=== PATIENT | female | born 1950 | race Caucasian/White ===

== ENCOUNTER 2023-04-24 12:18 | Outpatient (CLI) | payer MEDICARE | END 2023-04-24 12:19 | disposition critical access hospital (66) | LOC: EMS 12:18 | DX: F41.9 Anxiety disorder, unspecified (principal) | CPT/HCPCS: A0425; A0429 ==

== ENCOUNTER 2023-04-24 12:24 | Emergency (ER) | payer MEDICARE ==
[2023-04-24] MEDS ORDERED: LORazepam 2 MG/ML VIAL IVP STA (12:31)
[2023-04-24] MEDS ORDERED: LORazepam 2 MG/ML VIAL IM STA (12:31)
--- NOTE | 2023-04-24 12:36 | ED Physician Documentation ---
PD HPI MHE - Stated complaint Stated Complaint: ANXIETY - History obtained from History obtained from: Patient, EMS - Additional information Additional information: 72-year-old woman recently moved back from [place] where she was for 10 years. There she was maintained on clonazepam and Effexor. She stop these medications a few weeks ago of her own volition and now has severe anxiety and wanting help with that. She denies SI or HI, she says she was suicidal up 2 years ago but not since, that was after her dog . PD PAST MEDICAL HISTORY - Present Medications Home Medications: Ambulatory Orders Medication Instructions Recorded Confirmed LORazepam [Ativan] 1 mg PO TID PRN #20 tablet 04/24/23 - Allergies Allergies/Adverse Reactions: Allergies Allergy/AdvReac Type Severity Reaction Status Date / Time Penicillins Allergy Unknown Verified 04/24/23 12:37 PD ED PE NORMAL - Vitals Vital signs reviewed: Yes - General General: Alert and oriented X 3, Other (Slightly pressured speech and intermittently tearful) - HEENT HEENT: PERRL, EOMI - Neck Neck: Supple, no meningeal sign, No bony TTP - Neuro Neuro: Alert and oriented X 3, Normal speech Results - Vitals Vitals: Vital Signs - 24 hr 04/24/23 04/24/23 12:37 12:39 Temperature 36.5 C 36.5 C Heart Rate 100 100 Respiratory 20 16 Rate Blood Pressure 180/100 H 180/100 H O2 Saturation 98 98 Oxygen O2 Source Room air PD Medical Decision Making - ED course ED course: 72-year-old woman presents with severe anxiety related to medication withdrawal. After 2 mg of lorazepam IM she was feeling much better and speaking much more cogently, did not seem at all sedated. Offered social work consultation for consideration for hospitalization, but she would like to just have a refill of her medications although does not want to restart Effexor. Departure - Departure Disposition: 01 Home, Self Care Clinical Impression: Anxiety Condition: Good Record reviewed to determine appropriate education?: Yes Instructions: ED Panic Attack Prescriptions: LORazepam [Ativan] 1 mg PO TID PRN #20 tablet PRN Reason: Anxiety Comments: I sent the prescription electronically to the [facility] pharmacy at [place] [address] and [facility] in [place]. Its not more than about 200 yards from the hospital. Do not drink or drive while taking these medications and recognize they can be addictive. There is a list of PCPs attached to this form, call him for primary care follow-up and routine care. Follow-up with [facility] at [phone] to schedule psychiatric care and counseling. Forms: PCP List
[2023-04-24 12:42] VITALS: O2SAT 98
[2023-04-24 13:43] VITALS: BP 150/88
== END 2023-04-24 13:32 | disposition home or self-care (01) ==
LOC: ED 12:24
DX: F41.9 Anxiety disorder, unspecified (principal)
CPT/HCPCS: 96372; 99283; J2060

== ENCOUNTER 2023-04-26 14:32 | Outpatient (CLI) | payer MEDICARE ==
[2023-04-26 14:47] LABS: BASOPHILS # (AUTO) 0.1 10^3/uL (0.0-0.1); BASOPHILS % (AUTO) 2.4 %; EOSINOPHILS # (AUTO) 0.1 10^3/uL (0.0-0.7); EOSINOPHILS % (AUTO) 2.3 %; HGB - HEMOGLOBIN 13.2 g/dL (12.0-16.0); LYMPHOCYTES # (AUTO) 2.1 10^3/uL (1.5-3.5); MEAN PLATELET VOLUME 10.2 fL (7.9-10.8); MONOCYTES # (AUTO) 0.7 10^3/uL (0.0-1.0); NEUTROPHILS # (AUTO) 2.2 10^3/uL (1.5-6.6); NEUTROPHILS % (AUTO) 42.1 %; PLT - PLATELET COUNT 286 10^3/uL (130-450); RED BLOOD COUNT 3.67 10^6/uL (4.20-5.40); RED CELL DISTRIBUTION WIDTH 13.2 % (12.0-15.0); WHITE BLOOD COUNT 5.3 x10^3/uL (4.8-10.8)
[2023-04-26 15:00] LABS: ALBUMIN/GLOBULIN RATIO 1.1 (1.0-2.2); BILIRUBIN,TOTAL 0.4 mg/dL (0.2-1.0); CALCIUM 9.6 mg/dL (8.5-10.3); CREATININE 0.7 mg/dL (0.6-1.3); POTASSIUM 3.2 mmol/L (3.5-4.5); TOTAL PROTEIN 7.7 g/dL (6.4-8.9)
[2023-04-26 18:54] LABS: THYROID STIMULATING HORMONE 2.77 uIU/mL (0.34-5.60)
[2023-04-26 20:56] LABS: ESTIMATED AVERAGE GLUCOSE 123 mg/dL (70-100); HEMOGLOBIN A1c% 5.9 % (4.27-6.07)
== END 2023-04-26 14:33 | disposition home or self-care (01) ==
LOC: LAB 14:32
PROVIDERS: ATTEND Registered Nurse
DX: R94.4 Abnormal results of kidney function studies (principal); D72.819 Decreased white blood cell count, unspecified; F41.1 Generalized anxiety disorder; R94.5 Abnormal results of liver function studies
CPT/HCPCS: 36415; 80053; 82977; 83036; 83690; 84443; 85025

== ENCOUNTER 2023-05-10 15:22 | Emergency (ER) | payer MEDICARE ==
[2023-05-10] MEDS ORDERED: LORazepam 2 MG/ML VIAL IVP STA (17:29)
--- NOTE | 2023-05-10 17:38 | ED Physician Documentation ---
History of Present Illness - Stated complaint Stated Complaint: MHE - Chief complaint Chief Complaint: MHE - Additonal information Additional information: 72-year-old female returns to the emergency department seeking treatment for her anxiety. Reportedly the patient moved from [place] to [facility] on 20 March. While she was in [place] she was taking Effexor or and lorazepam for treatment of her anxiety but she decided to stop those medications just before moving up here. She was seen by my colleague on 26 April for anxiety. At that time she had no SI or HI. She was given a prescription for Ativan to be used as needed. She reports that she used the medication as prescribed but is now out of Ativan and has been for quite some time. Now having worsening anxiety pressured speech and difficulty concentrating. The patient is here with her brother. Her brother states that she cannot stay with him. Patient denies SI or HI and does not necessarily desire hospitalization but would like help with management of her anxiety. She would like to speak to social work or a mental health provider if able to tonight. On presentation she is alert though anxious appearing. I do note that she has some tachycardia at baseline with a heart rate of 120. She has some pressured speech somewhat tearful. Review of Systems Constitutional: reports: Reviewed and negative Throat: reports: Reviewed and negative Cardiac: reports: Reviewed and negative Respiratory: reports: Reviewed and negative : reports: Reviewed and negative Neurologic: denies: Generalized weakness Psychiatric: reports: Depressed, Anxiety, Insomnia. denies: Suicidal, Homicidal Endocrine: reports: Reviewed and negative PD PAST MEDICAL HISTORY - Past Medical History Past Medical History: Yes Endocrine/Autoimmune: Type 2 diabetes Psych: Depression, Anxiety - Past Surgical History Past Surgical History: Yes - Present Medications Home Medications: Ambulatory Orders Medication Instructions Recorded Confirmed QUEtiapine [SEROquel] 25 mg PO BID #75 tablet 05/10/23 - Allergies Allergies/Adverse Reactions: Allergies Allergy/AdvReac Type Severity Reaction Status Date / Time Penicillins Allergy Unknown Verified 05/10/23 15:32 - Social History Does the pt smoke?: Yes Smoking Status: Current every day smoker Does the pt drink ETOH?: Yes ETOH Use: Liquor Does the pt have substance abuse?: No - Immunizations Immunizations are current?: No PD ED PE NORMAL - General General: Alert and oriented X 3, Well developed/nourished. No: No acute dist ress (Appears anxious and tearful.) - HEENT HEENT: Atraumatic - Neck Neck: Supple, no meningeal sign - Cardiac Cardiac: RRR, No murmur - Respiratory Respiratory: No respiratory distress, Clear bilaterally - Abdomen Abdomen: Normal bowel sounds, Soft, Non tender - Neuro Neuro: Alert and oriented X 3, detention officer 2-12 intact Eye Opening: Spontaneous Motor: Obeys Commands Verbal: Oriented GCS Score: 15 - Psych Psych: No: Normal affect (Anxious, tearful some pressured speech. Forward thinking. No SI HI.) Results - Vitals Vitals: Vital Signs - 24 hr 05/10/23 05/10/23 05/11/23 15:32 18:30 05:52 Temperature 36.5 C 36.8 C Heart Rate 120 H 102 H 72 Respiratory 22 16 16 Rate Blood Pressure 150/100 H 141/82 H 133/68 H O2 Saturation 98 97 99 Oxygen O2 Source Room air - Labs Labs: Laboratory Tests 05/10/23 05/10/23 05/10/23 17:38 17:38 17:45 WBC 7.2 RBC 3.66 L Hgb 13.2 Hct 39.0 MCV 106.6 H MCH 36.1 H MCHC 33.8 RDW 13.2 Plt Count 237 MPV 11.1 H Neut # (Auto) 4.1 Lymph # (Auto) 2.4 [place] # (Auto) 0.6 Eos # (Auto) 0.1 Baso # (Auto) 0.1 Absolute Nucleated RBC 0.00 Nucleated RBC % 0.0 Sodium 137 Potassium 4.5 Chloride 103 Carbon Dioxide 27 Anion Gap 7.0 BUN 16 Creatinine 0.6 Estimated GFR (MDRD) 98 Glucose 106 H Calcium 10.0 Magnesium 1.5 L Total Bilirubin 0.4 AST 18 ALT 14 Alkaline Phosphatase 57 Total Creatine Kinase 43 Total Protein 7.8 Albumin 4.2 Globulin 3.6 Albumin/Globulin Ratio 1.2 Lipase 71 TSH 2.56 Urine Color YELLOW Urine Clarity CLEAR Urine pH 5.5 Ur Specific [place] 1.025 Urine Protein TRACE Urine Glucose (UA) NEGATIVE Urine Ketones NEGATIVE Urine Occult Blood NEGATIVE Urine Nitrite NEGATIVE Urine Bilirubin NEGATIVE Urine Urobilinogen 0.2 (NORMAL) Ur Leukocyte Esterase NEGATIVE Ur Microscopic Review NOT INDICATED Urine Culture Comments NOT INDICATED Salicylates < 1.5 Urine Opiates Screen NEGATIVE Ur Oxycodone Screen NEGATIVE Urine Methadone Screen NEGATIVE Ur Propoxyphene Screen NEGATIVE Acetaminophen 0.1 Ur Barbiturates Screen NEGATIVE Ur Tricyclics Screen NEGATIVE Ur Phencyclidine Scrn NEGATIVE Ur Amphetamine Screen NEGATIVE U Methamphetamines Scrn NEGATIVE U Benzodiazepines Scrn POSITIVE H Urine Cocaine Screen NEGATIVE U Cannabinoids Screen NEGATIVE Ethyl Alcohol < 10.0 PD Medical Decision Making - ED course Complexity details: reviewed results, re-evaluated patient, d/w patient ED course: 72-year-old female presents to the emergency department for evaluation of her anxiety. [place]. Prior to moving she had been on Effexor as lobule as lorazepam and Valium which she was obtaining in [place]. She was seen by my colleague about 2 weeks ago for similar. At that time she had pressured speech and anxiety. She received a 2 mg dose of Ativan which markedly improved her symptoms as well as her speech. She was advised to follow closely with the PCP as she most clearly has benzodiazepine dependence and would need to be weaned. Unfortunately she has been unable to access primary care and has been out of lorazepam for what sounds like nearly a week. Now here with anxiety, pressured speech. I did obtain CBC, electrolytes and urine drug screen which were all essentially negative though she is positive for benzos as expected. Given the improvement in her symptoms with lorazepam administrations she clearly has dependence on the medication which she is having hard time obtaining here in [facility]. I did offer a short-term prescription for lorazepam and discharged home but the patient at this time feels that she would benefit from further psychiatric evaluation though she does not desire placement. As such a telepsych order is pending which may be helpful for medication adjustments. If she remains in the ED overnight, she may benefit from evaluation 2124: Patient seen by telemetry psychiatrist physician Dr. Whipple. He did not feel the patient warranted inpatient psychiatric stay but feels that her anxiety could be best addressed by initiating her on Seroquel with low dosing; 12.5 mg in the morning and 50 at night with 12-1/2 mg twice daily as needed dosing. I spoke with the patient about the plan and she is comfortable starting Seroquel. At this time however she does not have safe disposition as she is unable to stay with her brother and [place] no homeless resources [place] She is staying in hotels. Her brother is however willing to pick her up in the morning and take her to a hotel. Therefore overnight she will board with discharge in the a.m. Initial dose of Seroquel given tonight in the emergency department I did attempt to call the patient's brother at 9:30 PM to notify him of the plan. However the phone number went immediately to voicemail. Departure - Departure Disposition: Home, Self Care Clinical Impression: Anxiety Condition: Stable Record reviewed to determine appropriate education?: Yes Instructions: ED Stress React Follow-Up: Lisa Boucher, DNP, SENIOR PENSIONS ADMINISTRATOR, PMHNP [Credentialed Staff Provider] - Prescriptions: QUEtiapine [SEROquel] 25 mg PO BID #75 tablet Comments: You are seen today in the emergency department for worsening anxiety. You did speak with a telehealth psychiatrist Dr. Whipple. He made the recommendation to have you start taking Seroquel. Take 12.5 mg in the morning or half of a 25 mg tablet. You should take 50 mg at night before bed or two 25 mg tablets. During the day for anxiety you can take an additional dose of 12-1/2 mg twice as needed for anxiety. It is important you continue to follow closely with a mental health professional. I have given you the [place] of Lisa Boucher [place] to see and help evaluate you. You can also continue to follow-up with [facility]. Moving forward it is going to be very important that you have a primary care provider or a psychiatric provider to help you manage your medical conditions and mental health in the long-term. If at any point you ever feel unsafe, have thoughts of self-harm or harm to others then please return immediately to the emergency department or call the National crisis hotline number at 826. Forms: PCP List Discharge Date/Time: 05/11/23 06:00
[2023-05-10] MEDS ORDERED: LORazepam 2 MG/ML VIAL IM STA (17:40)
[2023-05-10 17:47] LABS: BASOPHILS # (AUTO) 0.1 10^3/uL (0.0-0.1); BASOPHILS % (AUTO) 1.2 %; EOSINOPHILS # (AUTO) 0.1 10^3/uL (0.0-0.7); EOSINOPHILS % (AUTO) 0.7 %; HGB - HEMOGLOBIN 13.2 g/dL (12.0-16.0); LYMPHOCYTES # (AUTO) 2.4 10^3/uL (1.5-3.5); LYMPHOCYTES % (AUTO) 33.6 %; MEAN CORPUSCULAR HEMOGLOBIN 36.1 pg (27.0-31.0); MEAN CORPUSCULAR HGB CONC 33.8 g/dL (32.0-36.0); MEAN CORPUSCULAR VOLUME 106.6 fL (81.0-99.0); MEAN PLATELET VOLUME 11.1 fL (7.9-10.8); MONOCYTES # (AUTO) 0.6 10^3/uL (0.0-1.0); MONOCYTES % (AUTO) 8.3 %; NEUTROPHILS # (AUTO) 4.1 10^3/uL (1.5-6.6); NEUTROPHILS % (AUTO) 56.1 %; PLT - PLATELET COUNT 237 10^3/uL (130-450); RED BLOOD COUNT 3.66 10^6/uL (4.20-5.40); RED CELL DISTRIBUTION WIDTH 13.2 % (12.0-15.0); WHITE BLOOD COUNT 7.2 x10^3/uL (4.8-10.8)
[2023-05-10 17:51] LABS: MUDS CUTOFF CONCENTRATIONS CUTOFF CONC BELOW:
[2023-05-10 17:53] LABS: BILIRUBIN,URINE NEGATIVE (NEGATIVE); GLUCOSE, URINE (UA) NEGATIVE (NEGATIVE); KETONES,URINE (UA) NEGATIVE (NEGATIVE); LEUKOCYTE ESTERASE, URINE NEGATIVE (NEGATIVE); NITRITE,URINE NEGATIVE (NEGATIVE); OCCULT BLOOD,URINE NEGATIVE (NEGATIVE); PH,URINE 5.5 PH (5.0-7.5); PROTEIN,URINE TRACE mg/dL (NEGATIVE); UROBILINOGEN,URINE 0.2 (NORMAL) E.U./dL (NORMAL)
[2023-05-10 17:56] LABS: CLARITY,URINE CLEAR (CLEAR)
[2023-05-10 18:12] LABS: THYROID STIMULATING HORMONE 2.56 uIU/mL (0.34-5.60)
[2023-05-10 18:14] LABS: AMPHETAMINE SCREEN,URINE NEGATIVE (NEGATIVE); BARBITURATE SCREEN,UR NEGATIVE (NEGATIVE); BENZODIAZEPINES SCREEN, URINE POSITIVE (NEGATIVE); COCAINE SCREEN URINE NEGATIVE (NEGATIVE); METHADONE SCREEN, URINE NEGATIVE (NEGATIVE); METHAMPHETAMINES SCREEN, URINE NEGATIVE (NEGATIVE); OPIATE SCREEN, URINE NEGATIVE (NEGATIVE); OXYCODONE SCREEN, URINE NEGATIVE (NEGATIVE); PROPOXYPHENE SCREEN, URINE NEGATIVE (NEGATIVE); THC CANNABINOID SCREEN, URINE NEGATIVE (NEGATIVE); TRICYCLIC ANTIDEPRESSANT,URINE NEGATIVE (NEGATIVE)
[2023-05-10 18:18] LABS: ACETAMINOPHEN 0.1 ug/mL; ALBUMIN 4.2 g/dL (3.2-5.5); ALBUMIN/GLOBULIN RATIO 1.2 (1.0-2.2); ALKALINE PHOSPHATASE 57 IU/L (42-121); ALT ALANINE AMINOTRANSFERASE 14 IU/L (10-60); AST ASPARTATE AMINOTRANSFERASE 18 IU/L (10-42); BILIRUBIN,TOTAL 0.4 mg/dL (0.2-1.0); BUN - BLOOD UREA NITROGEN 16 mg/dL (6-20); CARBON DIOXIDE - CO2 27 mmol/L (21-32); CHLORIDE 103 mmol/L (101-111); CK- CREATINE KINASE 43 IU/L (30-223); CREATININE 0.6 mg/dL (0.6-1.3); ETOH - ETHANOL < 10.0 mg/dL; GFR - MDRD 98 (>89); GLUCOSE 106 mg/dL (74-104); LIPASE 71 U/L (11-82); MAGNESIUM 1.5 mg/dL (1.7-2.3); POTASSIUM 4.5 mmol/L (3.5-4.5); SODIUM 137 mmol/L (135-145); TOTAL PROTEIN 7.8 g/dL (6.4-8.9)
[2023-05-10 18:19] LABS: SALICYLATE < 1.5 mg/dL
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
[2023-05-10] MEDS ORDERED: QUEtiapine 25 MG TABLET PO STA (21:24)
--- NOTE | 2023-05-11 05:50 | ED Physician Documentation ---
ED Addendum - Addendum Addendum: 05/11/23 05:50 SHONNA. Patient's brother picked her up and she will f/u outpatient mental health. Return precautions given. Impression 1. anxiety COndition stable Disposition home
[2023-05-11 06:06] VITALS: BP 133/68; O2SAT 99
== END 2023-05-11 06:00 | disposition home or self-care (01) ==
LOC: ED 15:22
DX: F41.9 Anxiety disorder, unspecified (principal); F17.200 Nicotine dependence, unspecified, uncomplicated
CPT/HCPCS: 36415; 80053; 80306; 80307; 81003; 82550; 83690; 83735; 84443; 85025; 96372; 99283; 99284; A9270; G0426; G0480; J2060; Q3014; 80320; 80329; 81001; 87086; 90834